=== PATIENT | male | born 1995 | race Caucasian/White ===

== ENCOUNTER 2016-09-29 21:37 | Emergency (ER) | payer BC | END 2016-09-29 23:06 | disposition home or self-care (01) | LOC: ER 21:37 | DX: R51 Headache (principal); F17.200 Nicotine dependence, unspecified, uncomplicated; Z88.0 Allergy status to penicillin; Z88.1 Allergy status to other antibiotic agents | CPT/HCPCS: 70450; 96374; 99284; J1200; J1885; J2765 ==